=== PATIENT | female | born 1995 | race Caucasian/White ===

== ENCOUNTER 2019-12-07 19:03 | Emergency (ER) | payer OTHER, SELFPAY ==
[~2019-12-07] VITALS: Ht 160 cm; Wt 48.1 kg
[2019-12-07 19:08] VITALS: BP 149/95
--- NOTE | 2019-12-07 19:26 | NUR ---
THIS 24 YOF AMBULATED TO ED C/O CONCERNED FRIEND STATED UPPER LIP APPEARED "BLUE" AT LUNCH TODAY. PT REPORTS NOTICED RIGHT PALM ALSO APPEARED BLUE, REPORTS IMPROVED AFTER RUBBING ARM. PT DENIES FEELING SHORT OF BREATH, DENIES ALL C/O PAIN. PT REPORTS IS A RUNNER AND HAS BEEN AT [facility] FOR THE LAST TWO WEEKS RUNNING AND IS CONCERNED THE ALTITUDE CHANGE "MAY HAVE SOMETHING TO DO WITH IT."
--- NOTE | 2019-12-07 20:16 | NUR ---
REVIEWED DISCHARGE INSTRUCTIONS W/ PT, VERBALIZED UNDERSTANDING TO INFORMATION PROVIDED INCLUDING FOLLOW UP CARE AND RETURN PRECAUTIONS, DENIED QUESTIONS/CONCERNS. PT DENIED C/O PAIN OR CONCERNS AT TIME OF DISCHARGE. PT AMBULATED FROM ED W/ FAMILY.
== END 2019-12-07 20:19 | disposition home or self-care (01) ==
LOC: ED 20:13
DX: Z00.00 Encounter for general adult medical examination without abnormal findings (principal)
CPT/HCPCS: 99281